=== PATIENT | female | born 1945 ===

== ENCOUNTER 2018-09-27 08:28 | Day surgery (SDC) | payer OTHER | END 2018-09-27 14:40 | disposition home or self-care (01) | LOC: EDBD 08:28 → AMB-ENDOS 08:28 | DX: D12.2 Benign neoplasm of ascending colon (principal); K64.8 Other hemorrhoids ==

== ENCOUNTER 2023-07-26 14:36 | Emergency (ER) | payer OTHER ==
[~2023-07-26] VITALS: Ht 152.4 cm; Wt 47.2 kg
[2023-07-26] MEDS ORDERED: FENOFIBRATE40 MG PO (15:42)
[2023-07-26] MEDS ORDERED: LIPITOR40 M1 PO (15:43)
[2023-07-26] MEDS ORDERED: CARTIA XT120 MG PO (15:43)
[2023-07-26] MEDS ORDERED: LEVOTHYROXINE25 MCG PO (15:43)
[2023-07-26] MEDS ORDERED: PROTONIX20 MG PO (15:44)
[2023-07-26] MEDS ORDERED: TRIAMTERENE-HC1 EAC1 PO (15:44)
[2023-07-26] MEDS ORDERED: COZAAR25 MG PO (15:44)
== END 2023-07-26 20:17 | disposition home or self-care (01) ==
LOC: ER 14:36
DX: S52.592A Other fractures of lower end of left radius, initial encounter for closed fracture (principal); W18.39XA Other fall on same level, initial encounter; Y93.89 Activity, other specified; Y92.89 Other specified places as the place of occurrence of the external cause; S59.802A Other specified injuries of left elbow, initial encounter; S39.82XA Other specified injuries of lower back, initial encounter; M54.2 Cervicalgia; Z88.6 Allergy status to analgesic agent; Z88.2 Allergy status to sulfonamides; Z91.041 Radiographic dye allergy status; Z91.013 Allergy to seafood; Z88.0 Allergy status to penicillin; E11.9 Type 2 diabetes mellitus without complications; E03.9 Hypothyroidism, unspecified; I10 Essential (primary) hypertension

== ENCOUNTER 2023-08-17 07:22 | Day surgery (SDC) | payer OTHER ==
[2023-08-13 11:52] LABS: URINE APPEARANCE Clear; URINE BILIRRUBIN Negative (NEGATIVE); URINE BLOOD Negative; URINE COLOR Yellow; URINE GLUCOSE Negative (NEGATIVE); URINE LEUKOCYTE Moderate; URINE NITRATE Negative; URINE PROTEIN Negative (NEGATIVE)
[2023-08-13 11:57] LABS: URINE BACTERIA 70.5 uL (0.0-1933); URINE EPITHELIAL CELLS 9.4 uL (0.0-38.8); URINE WBC 13.1 uL (0.0-23.2)
[2023-08-13 12:17] LABS: HEMATOCRIT 32.8 % (36.0-45.00); MEAN CELL VOLUME 86.3 fL (80.00-100.00); MEAN CORPUSCULAR HEMOGLOBIN 28.9 pg (27.00-32.0); MEAN CORPUSCULAR HGB CONC 33.5 g/dl (32.0-36.0); PLATELET COUNT 467 K/uL (150-450); RED CELL DISTRIBUTION WIDTH 13.2 % (11.5-14.5)
[2023-08-13 12:47] LABS: INR 1.14; PARTIAL THROMBOPLASTIN TIME 25.9 SECONDS (22.0-34.0); PROTHROMBIN TIME 11.9 SECONDS (9.0-11.5)
[2023-08-13 12:52] LABS: BILIRUBIN TOTAL 0.4 mg/dL (0.3-1.2); CALCIUM 10.2 mg/dL (8.5-10.1); CREATININE SERUM 0.89 mg/dL (0.55-1.02); GFR 61.02; GLOBULINA 3.5 G/DL (2.4-3.5); POTASSIUM 4.28 mEq/L (3.5-5.1); TOTAL PROTEIN 7.5 gm/dL (6.4-8.2)
[2023-08-13 13:08] LABS: URINE CRYSTALS FEW /HPF
[~2023-08-17] VITALS: Ht 152.4 cm; Wt 47.2 kg
[~2023-08-17 07:22] MED LIST: ARICEPT5 MG; CARTIA XT120 MG PO; COZAAR25 MG PO; DYRENIUM50 MG; FENOFIBRATE40 MG PO; LEVOTHYROXINE25 MCG PO; LIPITOR40 M1 PO; PROTONIX20 MG PO; TRIAMTERENE-HC1 EAC1 PO
== END 2023-08-17 17:35 | disposition home or self-care (01) ==
LOC: CIR.AMB 07:22
PROVIDERS: ATTEND Orthopaedic Surgery Hand Surgery
DX: S52.532A Colles' fracture of left radius, initial encounter for closed fracture (principal); E11.9 Type 2 diabetes mellitus without complications; I10 Essential (primary) hypertension; Z88.0 Allergy status to penicillin; Z20.822 Contact with and (suspected) exposure to COVID-19
CPT/HCPCS: 25280; 25609; L8699

== ENCOUNTER 2023-08-31 09:57 | Outpatient (CLI) | payer OTHER | END 2023-08-31 10:05 | disposition home or self-care (01) | LOC: RAD 09:57 | PROVIDERS: ATTEND Orthopaedic Surgery Hand Surgery | DX: S52.532A Colles' fracture of left radius, initial encounter for closed fracture (principal) ==